=== PATIENT | male | born 1985 | race Caucasian/White ===

== ENCOUNTER 2016-06-15 23:25 | Inpatient (IN) | payer OTHER ==
[~2016-06-15] VITALS: Ht 177.8 cm; Wt 108.9 kg
--- NOTE | 2016-06-15 23:38 | NUR ---
PT BEING WANDED BY SECURITY AND CHANGED INTO PAPER SCRUBS.
--- NOTE | 2016-06-15 23:39 | ED PSYCHIATRIC COMPLAINT ---
See Addendum History of Present Illness General Chief Complaint: Psychiatric Related Complaint Stated Complaint: +SI Source: patient, EMS, police Exam Limitations: no limitations Vital Signs & Intake/Output Vital Signs & Intake/Output Vital Signs Date Time Temp Pulse Resp B/P Pulse O2 O2 Flow FiO2 Ox Delivery Rate 06/18 1429 98.0 92 130/79 06/18 1402 97.6 96 18 137/84 97 Room Air 06/18 1342 97.9 72 16 128/74 98 Room Air 06/18 1048 98.3 76 18 136/82 97 Room Air 06/18 0747 98.3 70 18 111/55 100 Room Air 06/17 2225 97.5 85 16 140/92 99 Room Air 06/17 1809 98.5 118 16 140/85 96 Room Air Triage Note: PT BIBA WITH PD ON A PEER S/P A MISDEMEANOR TONIGHT. [place] [employer]ICE REPORT THAT THEY WERE ABOUT TO LEAVE HE MADE SI COMMENTS TO HANG HIMSELF OR TAKE PILLS UPON ARRIVAL TO THE ER PT SPEAKING FAST AND LOUD STATING "SURE I WILL HANG MYSELF OR MAYBE TAKE SOME PILLS. LIFE IS NOT WORTH LIVING, NOT WORTH LIVING FOR ANYONE, WE'RE ALL GOING TO GO EXTINCT ANYWAY." PT IS COOPERATING WITH ER STAFF AT THIS TIME. ADMITS TO HAVING 2 DRINKS TONIGHT. PT HAS HX OF ASPBURGERS. DR. RUCKER AT BEDSIDE FOR EVAL. Triage Nurses Notes Reviewed? yes Onset: Gradual Duration: week(s): Timing: recent history Severity: moderate Associated Symptoms: suicidal ideation HPI: 31 yo gentleman w/ a history of asperger's presents via the police and medics with active suicidality in the context of getting picked up by a police misdemeanor. The police state, "He was driving erratically and came at us head on.... When we pulled him over, he said that he was going to kill himself by cutting himself or with pills." He states, "As soon as I get out of the hospital, I am going to kill myself." He states that he has been contemplating suicidality "for a long time, but when I got the ticket tonight, I figured I should just do it tonight." He states that he had 2 drinks, but denies other drugs tonight. He notes that he smokes occasional marijuana. He shares that his sister hung herself many years ago. (NORA IVORY,LAURENT Antonio) Reconcile Medications No Known Home Medications (DIANNA IVORY,STEWART) Allergies Coded Allergies: No Known Allergies (06/16/16) (MAX IVORY,AMISH Palomino) Past History Travel History Traveled to [place] past 21 day No Medical History Any Pertinent Medical History? see below for history Neurological: asperger's Surgical History Surgical History: non-contributory Family History Hx Contributory? No (NORA IVORY,LAURENT Antonio) Review of Systems Review of Systems Constitutional: Reports: no symptoms. EENTM: Reports: no symptoms. Respiratory: Reports: no symptoms. Cardiovascular: Reports: no symptoms. GI: Reports: no symptoms. Genitourinary: Reports: no symptoms. Musculoskeletal: Reports: no symptoms. Skin: Reports: no symptoms. Neurological/Psychological: Reports: no symptoms. Hematologic/Endocrine: Reports: no symptoms. Immunologic/Allergic: Reports: no symptoms. All Other Systems: Reviewed and Negative (NORA IVORY,LAURENT Antonio) Physical Exam Physical Exam General Appearance: well developed/nourished, mild distress Head: atraumatic Eyes: Bilateral: normal appearance. Ears, Nose, Throat: normal pharynx, normal ENT inspection, hearing grossly normal Neck: normal inspection, supple Respiratory: normal breath sounds Cardiovascular: regular rate/rhythm Gastrointestinal: soft, non-tender Extremities: normal range of motion Neurological/Psychiatric: no motor/sensory deficits, awake, agitated, alert, anxious, oriented x 3 Appearance/Memory/Insight: impaired insight Behavoir/Eye Contact/Speech: compulsive Thoughts/Hallucinations: no apparent hallucination Skin: intact, normal color, warm/dry SAD PERSONS SAD PERSONS Response Value Male Sex? yes 1 Depression/Hopelessness? yes 2 Rational Thinking Loss? yes 2 Single//? yes 1 Social Support? has no support 1 Total 7 SAD PERSONS Done? yes (ONRA IVORY,LAURENT Antonio) Progress Differential Diagnosis: etoh vs drugs vs depression vs developmental issues/ asperger's Plan of Care: Orders Procedure Date/time Status Regular Diet 06/18 L Active Continuous Observation Monitor 06/18 1500 Complete Vital Signs 06/18 1416 Active Inpt Psych Teach/Educate 06/18 1416 Active Nutritional Intake, Monitor 06/18 1416 Active Inpt Psych Auricular Acupunctu 06/18 1416 Active Continuous Observation Monitor 06/18 1100 Complete Lab Add-on Test 06/18 1052 Active Patient Data - inpatient psych 06/18 1049 Active Admit to inpatient psych 06/18 1049 Active Continuous Observation Monitor 06/18 0700 Complete Vital Signs 06/18 UNK Active Nursing Misc 06/18 UNK Active Alternative Nursing Therapy 06/18 UNK Active Activity/Ambulation 06/18 UNK Active TSH REFLEX 06/16 1233 Complete Intake & Output 06/15 2339 Complete Current Medications Sig/Adeel Start time Last Medication Dose Stop Time Status Admin Acetaminophen 650 MG Q6P PRN 06/18 1100 AC (Tylenol) Al Hydroxide/Mg 30 ML Q4-6 PRN PRN 06/18 1100 AC Hydroxide (Maalox Plus) Gabapentin 300 MG Q6P PRN 06/18 1100 AC (Neurontin) Magnesium Hydroxide 30 ML AT BEDTIME PRN 06/18 1100 AC (Milk Of Magnesia) Olanzapine 5 MG Q6P PRN 06/18 1100 AC (Zyprexa) Trazodone HCl 50 MG AT BEDTIME NEED.. 06/18 1100 AC (Desyrel) 06/16/2016 7:19:08 AM Signed out to me by Dr. Rucker. Pending crisis evaluation and disposition. Patient refusing labs. 13:55 PATIENT TO BE TRANSFERRED TO [facility] FOR INPATIENT PSYCHIATRIC ADMISSION. (DIANNA IVORY,STEWART) Hand-Off Endorsed To: STEWART WEBB MD Endorsed Time: 0700 Pending: consult, labs (NORA IVORY,LAURENT Antonio) Comments: 06/16/2016 8:19:45 PM patient signed out to me by Dr. Webb. Patient has been evaluated by the track oiler and he will be placed. 06/17/2016 5:25:43 AM uneventful emergency department stay to this point. 07:04am pt signed out to dr qureshi. (MAX IVORY,AMISH Palomino) Comments: To be admitted to [facility] (LETICIA IVORY,DILIA) Departure Departure Condition: Stable Clinical Impression Primary Impression: Depression Referred to [facility] as new patient No Departure Forms: Customer Survey General Discharge Information Comments 06/16/16, 0:30... pt declines rendering labs. pt is high risk for suicide given his active plan, sense of immediacy, and his family history (sister who hung herself). Pt to be evaluated by crises in the morning. (NORA IVORY,LAURENT Antonio) Departure Time of Disposition: 1359 Disposition: OTHER [facility]AL [facility] ([facility]) Prescriptions: Current Visit Scripts No Known Home Medications (DIANNA IVORY,STEWART) Departure Comments 06/17/16 The patient was signed out to me by Dr. Raines. He is pending disposition by crisis. 06/17/16 The patient is pending a bed search. (AMISH QURESHI DO) Departure Time of Disposition: 1331 Psych Admission Note Psychiatric Admission: I have seen and evaluated EARL TOLEDO. I have also reviewed all the pertinent lab results and diagnostic results. EARL TOLEDO will be admitted to our inpatient Psychiatric unit for treatment and care. (LETICIA IVORY,DILIA) Critical Care Note Critical Care Note Critical Care Time: 30-74 min (STEWART WEBB MD)
--- NOTE | 2016-06-15 23:52 | NUR ---
PT REFUSING BLOOD WORK AND TO PROVIDE A URINE AT THIS TIME. PT STATES "WANT TO SEE IT IN WRITING." PT SHOWN THE PEER WITH [place] [employer] AND BOTH THEY AND THIS RN EXPLAINED THAT THE PT HAS TO STAY TO BE EVALUATED. PT STATES "OKAY I WILL STAY HERE INDEFINITELY THEN BECAUSE I AM NOT DOING IT." AWARE OF PT REFUSAL AT THIS TIME.
--- NOTE | 2016-06-16 00:51 | NUR ---
PT SITTING ON STRETCHER AWAKE AND ALERT. CALM BUT CONTINUES TO BE UNCOOPERATIVE ABOUT BLOOD WORK AND URINE SAMPLE. SITTER SUMMER IN ATTENDANCE. WILL CTM.
--- NOTE | 2016-06-16 02:10 | NUR ---
PT CONTINUES TO SIT ON STRETCHER AWAKE AND ALERT. CONTINUES TO REFUSE BLOOD WORK AND URINE BUT AWARE OF NEED. MD MELENDEZ AWARE. SITTER IN ATTENDANCE. WILL CONTINUE TO MONITOR.
--- NOTE | 2016-06-16 02:30 | NUR ---
INSTRUCTED PT NEED TO DRAW BLOOD. HE VERBALLY REFUSED THEN GRABBED AT THIS NURSE, GRABBED MY SCISSORS AND ATTEMPTED TO STAB AT MY HAND THEN POUNDING THE TIP OF SCISSORS TO HIS CHEST. SECURITY AND DR MELENDEZ AT BEDSIDE TO INTERCEDE. PT VERBALLY ABUSIVE TOWARD STAFF.
--- NOTE | 2016-06-16 02:35 | NUR ---
SITTER AND SECURITY AT BEDSIDE.
--- NOTE | 2016-06-16 02:47 | NUR ---
PTS ROOMMATES ARE LENA [phone] AND COREY [phone]
--- NOTE | 2016-06-16 05:32 | NUR ---
PT NOW SLEEPING ON STRETCHER WITH REGULAR RR. BOTH SITTER AND SECURITY REMAIN IN ATTENDANCE.
--- NOTE | 2016-06-16 07:15 | NUR ---
PT SLEEPING COMFORTABLY AT THIS TIME.
--- NOTE | 2016-06-16 07:30 | NUR ---
FINGER FOOD BREAKFAST TRAY GIVEN.
--- NOTE | 2016-06-16 08:00 | NUR ---
PT SITTING UPRIGHT ON STRETCHER, LEGS CROSSED, NOT ANSWERING QUESTIONS, ?MEDITATING. REFUSING BLOODWORK/VITALS AT THIS TIME, BUT IS SITTING CALMLY ON STRETCHER, NO SOB NOTED, REGULAR RESPIRATIONS NOTED.
--- NOTE | 2016-06-16 08:41 | NUR ---
PT REFUSES BLOOD TO BE DRAWN AT THIS TIME RN AND PROVIDER AWARE
--- NOTE | 2016-06-16 09:09 | NUR ---
PT REFUSES VITALS AT THIS TIME MD AND RN AWARE
--- NOTE | 2016-06-16 11:15 | NUR ---
PT REFUSES VITALS AT THIS TIME. AND RN AWARE
--- NOTE | 2016-06-16 12:27 | NUR ---
PT MOVED TO ROOM # 14, AMBULATORY TO BATHROOM, TOOK MIRROR OFF BATHROOM WALL PER PRADEEP REINOSO, ORDER # 7 CALLED, [facility] AND SECURITY AT BEDSIDE, PT SITTING ON BED IN ROOM # 14, STATING "I AM CALM, I AM SORRY FOR THE PROPERTY DAMAGE", ATTEMPT TO GIVE IM MEDS ORDERED BY DR BUSTAMANTE, PT ASKING TO SPEAK WITH DR DIANNA ECHAVARRIA TO BEDSIDE, PT NOW COOPERATIVE TO HAVE BLOODWORK AND GIVE URINE SPECIMEN. BLOODWORK SENT TO LAB BY LISA MAI. PT NOTED WITH SUPERFICIAL LACERATION TO LEFT FOREARM, PT STATING " I DID IT WITH THIS" PT SHOWING HOSP ID BAND ROLLED UP, "BUT IT WASN'T VERY EFFECTIVE". BACITRACIN OINTMENT AND CLEAR OPSITE DRESSING APPLIED. PRADEEP REINOSO REMAINS AT DOORWAY.
--- NOTE | 2016-06-16 12:41 | NUR ---
PT DENIES ANY KNOWN ALLERGIES, MED RECORD UPDATED.
[2016-06-16 12:54] LABS: ABSOLUTE BASOPHIL COUNT 0 /CUMM (0.0-0.2); ABSOLUTE EOSINOPHIL COUNT 0.1 /CUMM (0.0-0.7); ABSOLUTE GRANULOCYTE CT 5.6 /CUMM (1.4-6.5); ABSOLUTE LYMPH COUNT 2.2 /CUMM (1.2-3.4); ABSOLUTE MONOCYTE COUNT 0.4 /CUMM (0.10-0.60); BASOPHIL % 0.6 % (0.0-2.0); GRANULOCYTE % 67.7 % (42.2-75.2); HEMATOCRIT 47.9 % (42-52); MEAN CORPUSCULAR HGB 30.2 PG (27.0-31.0); MEAN CORPUSCULAR HGB CONC 34.8 G/DL (33.0-37.0); MEAN CORPUSCULAR VOLUME 86.8 FL (80.0-94.0); MEAN PLATELET VOLUME 10.1 FL (7.4-10.4); PLATELET COUNT 198 /CUMM (130-400); RBC DISTRIBUTION WIDTH 12.6 % (11.5-14.5); RED BLOOD CELL CT 5.52 /CUMM (4.70-6.10); WHITE BLOOD CELL COUNT 8.3 /CUMM (4.8-10.8)
--- NOTE | 2016-06-16 13:36 | NUR ---
SIN spoke with Dr. Meek and Dr. Webb re: concern for the patient's safety, as he has exhibited several self-injurious behaviors / gestures (see above nursing notes), since presenting to the ED. Dr. Webb also expressed concern and spoke with nursing re: 1:1 sitter for the patient and she has already ordered medications for the patient. The patient was compliant with his lab draw and Crisis will await those results before evaluating him.
--- NOTE | 2016-06-16 13:52 | ED PSY CRISIS COLLATERAL NOTE ---
Collateral Note Collateral Note Family/Inform/Wendy Contacts: Collateral gathered from roommate Temi [phone]. She reports she was with pt last night at a constitution party and he was fine. He appeared to be having fun and involved in constitution party games. She reports he has mentioned a hx of on and off depression and she thinks he was taking an anti-depressant a couple of yrs ago but stopped because it wasn't helpful. She reports no awareness of any other mental health tx. She reports about a month ago on his birthday he was intoxicated and stated he plans on killing himself this year. She reports pt recently got a gun license permitt though she doesn't believe he has yet to purchase a gun. 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 She reports he is not happy with his career. She also reports he has recently made statements to the effect that his life is going nowhere and he is lonely and has no significant other. She also reports pt has recently become more focused on politics and has made statements that the [place] can't be trusted. She reports he at times sounds paranoid and has conspiracy theories about how corrupt and terrible the country is. He has also made statements about global warming and how the world is about to end. Temi also provided contact information for pt mother Brianna James [phone].
--- NOTE | 2016-06-16 14:18 | ED PSY CRISIS COLLATERAL NOTE ---
Collateral Note Collateral Note Family/Inform/Wendy Contacts: Collateral provided by pt mother Brianna James [phone]. She reports pt was at her house yesterday and he was "fine". She reported surprise that pt was in ED for evaluation as he "doesn't drink or use drugs" and she reports he has no pmh tx. She reports he visits with her 1x/wk and everything seemed fine. 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 He had a sister who developed a seizure condition as the result of being hit by a truck who committed suicide by hanging 7 yrs ago. She reports that he can be stubborn and a hx of temper outbursts but has never been aggressive towards others or unsafe to himself. Mother also added pt is upset about presidential election results.
--- NOTE | 2016-06-16 17:12 | NUR ---
PT LAYING QUIETLY IN ROOM, SITTER REMAINS PRESENT FOR SAFETY.
--- NOTE | 2016-06-16 17:35 | NUR ---
URINE SAMPLE OBTAINED AND SENT TO LAB
--- NOTE | 2016-06-16 17:48 | ED PSY CRISIS COLLATERAL NOTE ---
Collateral Note Collateral Note Family/Inform/Wendy Contacts: Spoke With patient's mother once again and mother, who was concerned and wondered what was happening with her son. She understood that I was unuable to share too much information with her. 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 Mother did not report that she was aware of ant significant problems or traumatic experiences, mother said none that she had been aware of. Mother mentioned that he had 2 friends who would be more likely to know about what was going on; however mother did not know the telephone numbers of the people. Patient was concerned that he may have gotten very upset due to police stop, and she felt he might react badly if he was arrested and may have had to go to senior living; however that was not going to be taken into custody, but then he made + S.I. remark. Mother is Brianna James [phone].
--- NOTE | 2016-06-16 18:47 | NUR ---
PT REFUSED VITALS AT THIS TIME.
--- NOTE | 2016-06-16 20:11 | ED PSYCH CRISIS CONSULTATION ---
See Addendum Crisis Consult Basic Assessment Date of Consult: 06/16/16 Responsible Person/Accompanied By: Brianna James, Insurance Authorization: Insurance #1: Insurance name: RUBEN RAYO Phone number: Policy number: [id number] Group number: [id number] Authorization number: ED Provider: Patient's ED Provider: NORA IVORY,REGAN Antonio Primary Care Physician: Patient's PCP: UNKNOWN PCP's Phone Number: Current Psychiatrist: none Chief Complaint: Psychiatric Related suicidal ideation Patient's Quote: "i did dumb thing, but I wanted to make sure by coming here that I could Present Illness: Patient is 31 year old unmarried male who was sent to E.D on police paper, after he was stopped after having gone through a stop sign w/o completely stopping; and having had two large drinks which put him over the limit. "as I usually try to go out of my way to help people, I volunteered to go get the pizza, while knowing I had had a few. Patient subsequently took a scissors from staff to cut self; thenbroke a mirror in the bathroom to cut himself , which he did. All of this occurred after he had been given ticket by police who were bulmaro car due to patient's BAL. (Note the BAL wasless than 10 when tested here, but positive for cannabis, which patient admits to using often, as opposed to drinking, which is at most 2 days per week, and not to point of getting real drunk. Patient reports that he has been "kind of "diagnosed as having Asburgers, and certainly relates as if on the spectrum. He takes time picking and choosing words carefully, and has a very intense presentation. Patient states that he knows that he has a lot of "markers", for mental illness and possible S I.; as patient's father of cancer [id number] and it was very tough for family. Also brianne's only sister had horrendous injury in 2001, as she was competing athletically, and it gave her siezures and part paralyzation. She killed herself in 2008. Patient objective in trying to get here via police (as, at one level, he knew his statements would result in being brought to hospital), was to insure that he could never possess a gun, because he sees himself dying by shooting himself fairly often Patient states he has low self esteem, and that kids were awful to him as a kid. Patient is very resistent to medication, not feeling that it would help him at all. 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 He lives with 2 women who are in green relationship, renting from them. Patient went on and on about the poor policies of the [place] in terms of environment and economics, especially toward young people. Patient describes today "as maybe a cry for help". Patient is alert and Ox 3. Talkative, and apologetic for causing disturbance. Patient's Address: [address] [place] [address] Other Phone Number: Who Do You Live With? Friend Family/Informants Interviewed: Mother Brianna James Allergies - Coded Allergies: No Known Allergies (06/16/16) Current Medications - No Known Home Medications Laboratory Results: Laboratory Tests 06/16/16 1730: Urine Opiates Screen < 100.00, Methadone Screen < 40, Barbiturate Screen < 60, Ur Phencyclidine Scrn < 6.00, Amphetamines Screen < 100, U Benzodiazepines Scrn < 85, Urine Cocaine Screen < 50, Urine Cannabis Screen > 80.00 H 06/16/16 1233: Anion Gap 16, Estimated GFR > 60, BUN/Creatinine Ratio 18.6, Glucose 102 H, Calcium 9.5, Total Bilirubin 0.8, AST 27, ALT 44, Alkaline Phosphatase 68, Total Protein 8.5 H, Albumin 5.2 H, Globulin 3.3, Albumin/Globulin Ratio 1.6, CBC w Diff NO MAN DIFF REQ, RBC 5.52, MCV 86.8, MCH 30.2, RDW 12.6, MPV 10.1, Gran % 67.7, Lymphocytes % 26.1, Monocytes % 4.6, Eosinophils % 1.0, Basophils % 0.6, Absolute Granulocytes 5.6, Absolute Lymphocytes 2.2, Absolute Monocytes 0.4, Absolute Eosinophils 0.1, Absolute Basophils 0, PUBS MCHC 34.8, Serum Alcohol < 10.0 06/15/16 2340: Methadone Screen Cancelled, Barbiturate Screen Cancelled, Ur Phencyclidine Scrn Cancelled, Amphetamines Screen Cancelled, U Benzodiazepines Scrn Cancelled, Urine Cocaine Screen Cancelled, Urine Cannabis Screen Cancelled (KIMMIE PRESLEY,BRYAN Jerez.) Addendum Addendum Crisis re-eval pt this morning. Pt much brighter and engaged today. ying affect. He apologized for damages and any trauma or inconvience he posed to the ED yesterday. He discussed his intent in making suicidal statements and being brought to [place] ED was to insure he will not be able to have access to a gun. He reports that he had recently obtained a gun license permit with the intent of having access to a loaded gun in the case that he wanted to kill himself if his life situation worsened. Crisis reiterated that a bed search continues and that his current mental state will be reviewed with covering psychiatrist this morning. (ALFONZO BIRD,KATE) Past History Past Medical History Neurological: asperger's Past Surgical History Surgical History: non-contributory Psychosocial History Strengths/Capabilities: roshni has job with benefits support from mom has stable housing Physical Limitations (Interventions): none Psychiatric Treatment History Psych Treatment Psychiatric Treatment Yes Inpatient Treatment No Outpatient Treatment Yes Location of Treatment vague not sure where while ago Reason for Treatment Asburgers deathof father and sister Dates of Treatment 2009 Response to Treatment not helpful Diagnosis by History: Asburgers Substance Use/Abuse History Drug Use/Abuse Substances Used/Abused Yes Substance Used/Abused Marijuana First Use 22 Last Used 2 days ago How much used/taken varies How often almost daily For how long 8-9 years Route of use smoke Substance Abuse Treatment Substance Abuse Treatment Past Substance Abuse [place] No Comments: feels cannabis helps calm him down (KIMMIE PRESLEY,BRYAN Jerez.) Current Mental Status Mental Status Orientation: Person, Place, Situation Affect: Anxious, Labile Speech: Hyper-verbal, Loud, Perseveration Neuro-vegetative: Loss of Interest, Sexual Interest Decreased Appearance Appearance- Dress/Hygiene: neat Behaviors Thought Process: Loose Association, Tangential Thought Content: Ideas of Reference Memory: WNL Insight: Poor SI/HI Risk Assessment Past Suicidal Ideation/Attempts Yes Current Suicidal Ideation/Att Yes Past Homicidal Ideation/Att: No Current Homicidal Ideation/Attempts No Degree of Intent: Thoughts/No Intent Risk Factors: high anxiety/distress, SA/MH hospitalized, substance abuse, poor impulse control, male Lethality Ratin PTSD Checklist PTSD Done? pt unable to participate ED Management Sitter: Yes Restraints: No (KIMMIE PRESLEY,BRYAN Cr) DSM5/PS Stressors/Medical Prob Diagnosis' (DSM 5, Stressors, Medical): Bipolar d. o. recuurent with psychotic features F33.3 Cannabis use d.o. [id number] Alcohol use d.o., [id number] Current GAF: 24 Comments: Patient made many suicidal statements to police and then tried to hurt self in hospital. Afraid he would shoot himself if he had a gun, so this is means to prevent his obtaining a gun (KIMMIE PRESLEY,BRYAN Cr) Departure Disposition Psych Medical Clearance Date: 06/16/16 Medically Cleared at: 1845 Time Started: 1849 Time Ended: 1949 Psychiatrist Consulted: Regan Meek MD Time Disposition Established: 1929 Plan for Disposition - Modality: Bed Search Rationale for Disposition: no beds cpsouth need bedsearch Type of IP Admission: PEC Additional Instructions: monitor closely Referrals UNKNOWN (PCP/Family) (BRYAN BURKS MS)
--- NOTE | 2016-06-16 21:31 | NUR ---
Bed Search started. Pt's info faxed to [facility], [facility], [facility] and [facility].
--- NOTE | 2016-06-16 23:19 | NUR ---
PT REMAINS CALM AND RESTING AT THIS TIME. NO ACUTE DISTRESS. REMAINS IN BEHAVIORAL CONTROL. PLAN FOR HOLD OVERNIGHT AND BEDSEARCH TOMORROW BY CRISIS. SITTER PRESENT FOR SAFETY
--- NOTE | 2016-06-17 01:37 | NUR ---
RESTING QUIETLY IN BED SITTER IN ATTENDANCE
--- NOTE | 2016-06-17 04:00 | NUR ---
CONTINUES TO SLEEP CONSTANT OBSERVATION MAINTAINED
--- NOTE | 2016-06-17 07:20 | NUR ---
PT SLEEPING COMFORTABLY AT PRESENT, SITTER REMAINS AT DOORWAY.
--- NOTE | 2016-06-17 08:32 | NUR ---
Crisis re-eval. Pt much brighter and engaged today. Currently denying acute SI. Pt informed that a bed search continues. Crisis will f/u on referrals sent last evening.
--- NOTE | 2016-06-17 10:44 | NUR ---
PT REMAINS CALM AND COOPERATIVE, AWAITING CRISIS FOR POSSIBLE ADMISSION, BED SEARCH ONGOING.
--- NOTE | 2016-06-17 11:10 | NUR ---
Crisis faxed pt referrals to [facility], [facility] and [facility].
--- NOTE | 2016-06-17 11:33 | NUR ---
PT AMBULATORY IN ROOM. PT CALM AND COOPERATIVE WHILE TAKING VITALS. PT HAS LUNCH TRAY.
--- NOTE | 2016-06-17 12:10 | NUR ---
DR STOVER AT BEDSIDE FOR EVAL
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
--- NOTE | 2016-06-17 13:54 | NUR ---
PT CALM AND COOPERATIVE FOR VITALS. PT RESTING ON BED. CRISIS PERFORMING BED SEARCH.
--- NOTE | 2016-06-17 14:17 | NUR ---
Monie delined pt referral because [employer] insurance on 06/16/16. Pt said his company switched over to [employer] as of 06/17/16.
--- NOTE | 2016-06-17 15:14 | NUR ---
PT RESTING ON BED AT THIS TIME. SITTER AT DOORWAY FOR SAFETY
--- NOTE | 2016-06-17 16:53 | NUR ---
PT AMBULATORY IN ROOM, PACING. PT CALM AND COOPERATIVE. BED SEARCH IN PROGRESS.
--- NOTE | 2016-06-17 17:04 | NUR ---
SIN followed up with Monie, Gabriela Navarrete and J[facility] re: possible admission. Monie and JUS note that they have filled all of their available beds. Gabriela Navarrete reports that they are still reviewing. SW spoke with the patient who is aware of the plan.
--- NOTE | 2016-06-17 18:09 | NUR ---
PT STANDING IN ROOM WATCHING TV WITH BLANKET WRAPPED AROUND HIM. PT CALM AND COOPERATIVE. SITTER AT DOOR FOR SAFETY.
--- NOTE | 2016-06-17 19:42 | NUR ---
PT ALBULATORY IN ROOM, STANDING IN FRONT OF TV. CALM AND COOPERATIVE AT THIS TIME. SITTER AT DOOR.
--- NOTE | 2016-06-17 21:05 | NUR ---
PT LYING ON BED WATCHING TV. PT CALM AND COOPERATIVE AT THIS TIME. SITTER AT DOOR FOR SAFETY.
--- NOTE | 2016-06-17 22:24 | NUR ---
PT LYING ON BED WATCHING TV. PT STOOD UP WHEN I ASKED IF I COULD TAKE HIS VITALS. PT PLEASANT, CALM AND COOPERATIVE. SITTER AT DOOR FOR SAFETY.
--- NOTE | 2016-06-18 00:45 | NUR ---
PT SLEEPING WITH RR, SLEEPING ON SIDE WITH CHEST RISE AND FALL. SITTER IN PLACE WILL CONTINUE TO MONITOR.
--- NOTE | 2016-06-18 02:10 | NUR ---
PT SLEEPING WITH RR, CHEST RISE AND FALL PT SLEEPING ON STOMACH, SITTER IN PLACE AT DOOR. WILL CONTINE TO MONITOR.
--- NOTE | 2016-06-18 03:57 | NUR ---
PT SLEEPING WITH RR ON L SIDE, CHEST RISE AND FALL NOTED. SITTER IN PLACE AT DOOR.
--- NOTE | 2016-06-18 06:36 | NUR ---
assumed care, pt noted to be sleeping when this nurse entered room awake to verbal stimuli, calm coperative with sitter in attendance, will continue to monitor
--- NOTE | 2016-06-18 09:10 | NUR ---
PT REMAINS CALM AND COPERATIVE , SLEEPING AT THIS TIME WITH REGULAR RESP RATE NOTED. SITTERS REMAIN
--- NOTE | 2016-06-18 09:55 | NUR ---
PER CRISIS PT NEEDS HIS PHONE OUT OF [employer] BAG SO THAT HE CAN CALL HIS EMPLOYERS, [employer]ATER[employer] ASSISTING PT TO RETRIEVE HIS NUMBERS AT THIS TIME
--- NOTE | 2016-06-18 10:30 | NUR ---
VALUABLES PLACED BACK IN SAFE. SITTERS REMAIN WITH PT ,
--- NOTE | 2016-06-18 11:05 | IP CRISIS DIAG ASSESS PSYCH ---
See Addendum Diagnostic Assessment Basic Assessment Insurance Authorization: Insurance #1: Insurance name: [facility]. Phone number: Policy number: [id number] Group number: [id number] Authorization number: SIN called [facility]- The Pending reference # is [id number] There were no available care managers at the time of the call and SIN was instructed to leave clinical on Ribbon Cleaner, Navya's voicemail, at [phone]. Navya will review clinical and call Crisis with prior authorization information. Primary Care Physician: Patient's PCP: UNKNOWN PCP's Phone Number: Present Illness: The patient is a 31 year old single, male presenting to the ED, on a PEER, after making suicidal statements to the police. The patient presents alert and oriented with euthymic mood and congruent affect. His thought process and content appear to be concrete and intense. He denies any current SI or HI, however does admit to having ongoing suicidal thoughts. He states that he started the process to obtain a gun permit, as using a firearm is the only way he could see himself following through on his suicidal thoughts. He rates his depression a 2.5 and anxiety a 2 out of 10 (10 being the most severe). He denies any current or history of AH, VH or paranoia, however he does appear paranoid when discussing the "future of humanity." He states that "he believes that humanity will be extinct in 100 years," noting that this is the primary trigger for his suicidal thoughts. He denies any previous stressors besides the state of the world and humanity. He denies any current or history of abuse or trauma. 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 He does admit to regular use of alcohol and marijuana weekly. He did have significant loses in his life, as his father from Cancer in 2006 and his sister committed suicide in 2008. He states that he went to therapy to cope with both of the loses and that he believes he is over them. He does appear to have insight that his behaviors and statements warrant an inpatient admission at this time Patient's Address: [address] [place] [address] Other Phone Number: Who Do You Live With? Friend Feel Safe Where You Live? Yes Feel Safe in Your Relationship No (N/A) If No, Please Elaborate: N/A Marital Status: single Do You Have Children? No Primary Language? Kittitian Family/Informants Interviewed: Mother Brianna James was contacted when the patient first presented to the ED. Allergies - Coded Allergies: No Known Allergies (06/16/16) Current Medications - No Known Home Medications Consequences of Psych Med Use: N/A Comment: N/A Toxicology Screen Completed? Yes Results: positive (Cannabis) Symptoms of Use: N/A Past History Abuse/Trauma History Trauma History/Current Trauma: Denies Legal History Current Legal Status: The patient reports that he has legal issues, that he will have to deal with, from the incident with the police that brought him to the ED. Have you ever been arrested? Yes Number of Arrests: [address] Dates: The patient is unsure Software Product Manager N/A Psychosocial History Strengths/Capabilities: The patient has stable housing and employment. He does appear to have a supportive mother and friends. Physical Limitations (Interventions): None noted Psychiatric Treatment History Psych Treatment Psychiatric Treatment Yes Inpatient Treatment No Outpatient Treatment Yes Location of Treatment The patient just stated it was private therapy and did not elaborate. Reason for Treatment The patient reports that he had therapy to help cope with the of his sister and his father. Dates of Treatment 2006 and 2008 Response to Treatment The patient states that the therapy helped him to cope with the of his father and sister and that he is over it. He is very clear that their deaths have nothing to do with his presenation to the ED at this time. Diagnosis by History: Per history- Aspergers Risk Factors: high anxiety/distress, SA/MH hospitalized, substance abuse, poor impulse control, male Substance Use/Abuse History Drug Use/Abuse minimum 12mo Hx 1 Substances Used/Abused Yes Substance Used/Abused Marijuana First Use 26 years old Last Used May 2016 How much used/taken 1x weekly How often The patient was not clear For how long 8-9 years per initial consult Route of use Inhalation Drug Use/Abuse minimum 12mo Hx 2 Substances Used/Abused Yes Substance Used/Abused Alcohol First Use 26 years old Last Used May 2016 How much used/taken 2 or 3 drinks a week How often 2-3 drinks a week. For how long Unclear Route of use Oral Substance Abuse Treatment Substance Abuse Treatment Past Substance Abuse TX No Inpatient Treatment No Outpatient Treatment No Location of Treatment N/A Reason for Treatment N/A Dates of Treatment N/A Response to Treatment N/A Comments: The patient reports that he and his friends have a regular game night on Tuesdays and that he usually drinks then. Sexual History Sexually Active No Sexual Orientation Heterosexual Sexual Concerns: None noted Education History Highest Level of Education: high school/GED (Accounting), bachelor's degree Preferred Learning Style: experiential Current Mental Status Mental Status Orientation: Person, Place, Situation Affect: WNL Speech: Loud ([place] and intense at times) Neuro-vegetative: Anhedonia (Per initial consult), Loss of Interest, Sexual Interest Decreased Appearance Appearance- Dress/Hygiene: The patient presents alert, oriented, neat and clean. He was sitting in bed, in hospital attire and had good eye contact and participation in the evaluation. Behaviors Thought Process: concrete Thought Content: The patient appears to be having paranoid thoughts about the state of the world and humanity. He notes that the decline of humanity is what is triggering his suicidal thoughts. He states that there are alot of things going wrong and that no one is doing anything to make them better. Memory: WNL Insight: WNL SI/HI Risk Assessment - Minimum 6mo History- Past Suicidal Ideation/Attempts Yes Current Suicidal Ideation/Att No Past Homicidal Ideation/Att: No Current Homicidal Ideation/Attempts No Degree of Intent: The patient reportedly told the police officers that he was going to kill himsel by shooting himself. He does state that the only way he would kill himself would be via a firearm. He did make several attemtpts to harm himself while in th ED, cutting his arm with his ID band, grabbing marcus from an RN and putting them to his chest, as well as pulling the mirror off the wall in the bathroom., The patient did start the process to obtain a gun permit, as he believes this is the only way the he would kill himself. Risk Factors: high anxiety/distress, SA/MH hospitalized, substance abuse, poor impulse control, male Lethality Ratin Needs/Init TX Plan/Goals: Admit to inpatient treatment to maintain safety and to stabilize symptoms. The patient will work with the treatment team on transitioning to care in the [facility]. AUDIT-C Questionnaire: AUDIT-C Questionnaire: Response Value ETOH use in the past year 2-4 times/week 3 # drinks typical/day 3 or 4 1 6 or > drinks per occasion Less than monthly 1 Total 5 DSM5/PS Stressors/Medical Prob Diagnosis' (DSM 5, Stressors, Medical): F31.9 Unspecified Bipolar Disorder and related Disorder F12.20 Cannabis use Disorder F10.20 Alcohol use Disorder Current GAF: 25 Comments: N/A
--- NOTE | 2016-06-18 12:00 | NUR ---
PT RESTING ON BED WITH EYES CLOSED AT THIS TIME REGULAR RESP RATE NOTED. SITTER REMAINS
--- NOTE | 2016-06-18 13:12 | SOCIAL WORKER SOCIAL HX PSYCH ---
Social History Basic Assessment Insurance Authorization: Insurance #1: Insurance name: [employer] Phone number: Policy number: [id number] Group number: [id number] Authorization number: [facility] Source of Income/Entitlements: employment Primary Care Physician: Patient's PCP: UNKNOWN PCP's Phone Number: Present Problem: The patient is a 31 year old single, male presenting to the ED, on a PEER, after making suicidal statements to the police. The patient presents alert and oriented with euthymic mood and congruent affect. His thought process and content appear to be concrete and intense. He denies any current SI or HI, however does admit to having ongoing suicidal thoughts. He states that he started the process to obtain a gun permit, as using a firearm is the only way he could see himself following through on his suicidal thoughts. He rates his depression a 2.5 and anxiety a 2 out of 10 (10 being the most severe). He denies any current or history of AH, VH or paranoia, however he does appear paranoid when discussing the "future of humanity." He states that "he believes that humanity will be extinct in 100 years," noting that this is the primary trigger for his suicidal thoughts. He denies any previous stressors besides the state of the world and humanity. He denies any current or history of abuse or trauma. 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 He does admit to regular use of alcohol and marijuana weekly. He did have significant loses in his life, as his father from Cancer in 2006 and his sister committed suicide in 2008. He states that he went to therapy to cope with both of the loses and that he believes he is over them. He does appear to have insight that his behaviors and statements warrant an inpatient admission at this time Primary Language? Belarusian Living Situation Rents or Owns Home? rents Other Living Arrangement: N/A Residential Care/Treatment Fac N/A Feel Safe Where You Are Living Yes Feel Safe in Relationships? Yes (N/A) Comments: N/A Allergies - Coded Allergies: No Known Allergies (06/16/16) Current Medications - No Known Home Medications Consequences of Psych Med Use: N/A Comments: N/A Past History Past Medical History Neurological: asperger's Past Surgical History Surgical History: non-contributory /Family History Place/Country of Origin: [facility] Childhood Family Constellation: Mother, father, and 2 sisters Primary Childhood Caretakers: father, mother Family Life During Childhood: "[place] family but school sucked." DCF Involvement? No Mother's Age (Current/): 0 (Unknown) Relationship w/Mother: The patients mother spoke with Crisis when the patient presented. Father's Age (Current/): 0 ( in 2006) Relationship w/Father: Unclear how the patient's relationship was prior to his fathers passing in 2006, from Cancer Any Sibling(s)? Yes Sibling's Gender(s)/Age(s): female Sibling 1:, female Sibling 2: Relationship w/Sibling(s): The patient reports that one of his sisters committed suicide in 2008 and that the other sistesr lives in [place]. He notes that he sees his sister 1-2 times per year and that they have a "fine" relationship. Relationship w/Friends: The patient reports that he has a good [place] of friends and that those relationships are "really great." Family Psych/Sub Abuse/Add Hx: None noted Other Comments: N/A Abuse/Trauma History Trauma History/Current Trauma: Denies Victim or Perpretator? victim (N/A) Patient's Age at Time of Trauma: 0 (N/A) History of Trauma/Abuse Treatment? No (N/A) Abuse/Trauma Treatment: N/A Legal History Legal Guardian/Address/Phone: Self Current Legal Status: Pending legal issues re: to presentation to the ED. Pending Court Dates: The patient believes that he will have a court date, however does not know when it will be. Have you ever been arrested Yes Number of Arrests: 1 Hx of Juvenile Legal Charges? No Hx of Adult Legal Charges? 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 He does appear to have a supportive mother and friends. Weaknesses: The patient lost his father to Cancer and sister to suicide. Physical Limitations (Interventions): None noted Last Physical: Unknown History of Seizures? No History of Blackouts? No ADL Limitations: None noted [place]/Social/Peer Relations The patient reports that he has good friends. He notes that making friends was not easy for him until he started college. He notes no issues now and reports that he has a game night at his house weekly, for his friends. Meaningful Activities: The patient reports that he likes to play board and video games. Childhood Uatsdin: no mandaeism stated Current Mu-Ism Affiliation: Agnostic Is Spirituality Important to You? "No" Cultural/Ethnic Issues: None noted Are There Developmental Issues? No Milestones Achieved: fine motor, gross motor Psychiatric Treatment History Psych Treatment Inpatient Treatment No Outpatient Treatment Yes Location of Treatment The patient just stated it was privatetherapy and did not elaborate. Reason for Treatment The patient reports that he had therapy to help cope with the of his sister and his father. Dates of Treatment 2006 and 2008 Response to Treatment The patient states that the therapy helped him to cope with the of his father and sister and that he is over it. He is very clear that their deaths have nothing to do with his presenation to the ED at this time. Precipitating Factors: The patient reports that he only attended therapy to deal with the deaths of his sister and father, as well as work related stress. Current Pipe And Test Supervisor: None noted Treatment of Prior Episodes: Private therapists- he did not elaborate on specifics. Diagnosis: Per history- Aspergers Psychodynamic Issues: The of his sister and father. Risk Factors: high anxiety/distress, SA/MH hospitalized, substance abuse, poor impulse control, male Substance Use/Abuse History Drug Use/Abuse 1 Substance Used/Abused Alcohol First Use 26 years old Last Used May 2016 How much used/taken 2 or 3 drinks a week How often 2-3 drinks a week. For how long Unclear Route of use Oral Drug Use/Abuse 2 Substance Used/Abused Marijuana First Use 26 years old Last Used May 2016 How much used/taken unclear How often 1x weekly For how long 8-9 years per initial consult Route of use Inhalation Explain: N/A Explain: N/A Have You Ever Attended AA? No Do You Attend AA Currently? No Do You Have a Sponsor? No Other Community Resources Used: None noted Symptoms of Use: N/A Substance Abuse Treatment Substance Abuse Treatment Inpatient Treatment No Outpatient Treatment No Location of Treatment N/A Reason for Treatment N/A Dates of Treatment N/A Response to Treatment N/A Comments: N/A Sexual History Sexually Active No Sexual Orientation Heterosexual Sexual Concerns: None noted Education History Highest Level of Education: high school/GED (Accounting), bachelor's degree Highest Grade Completed: graduated high school Vocational Year Completed: N/A Number of College Years: 4 College Degree/Major: Accounting Other Degree(s): N/A Preferred Learning Style: experiential HX of Learning Difficulties: None reported Barriers to Learning: None reported Special Communication Needs: None reported Employment History Employment Employed Not in Labor Force: N/A 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 of Jobs in Last 5 Years: 3 Attendance: Normal Performance: Good Comments: N/A History Have You Been in The ? No If Yes, Explain: N/A Type of Discharge: N/A Date of Discharge: N/A Current Mental Status Mental Status Orientation: Person, Place, Situation Affect: WNL Speech: Loud ([place] and intense at times) Neuro-vegetative: Anhedonia (Per initial consult), Loss of Interest, Sexual Interest Decreased Appearance Appearance- Dress/Hygiene: The patient presents alert, oriented, neat and clean. He was sitting in bed, in hospital attire and had good eye contact and participation in the evaluation. Behaviors Thought Process: concrete Thought Content: The patient appears to be having paranoid thoughts about the state of the world and humanity. He notes that the decline of humanity is what is triggering his suicidal thoughts. He states that there are alot of things going wrong and that no one is doing anything to make them better. Memory: WNL Insight: WNL SI/HI Risk Assessment Past Suicidal Ideation/Attempts Yes Current Suicidal Ideation/Att No Past Homicidal Ideation/Att: No Current Homicidal Ideation/Attempts No Degree of Intent: Plan, The patient currently denies SI, however is clear that he had been having suicidal thoughts to kill himself with a firearm. He did make several suicidal gestures while in the ED., He did start the process to obtain a gun permit. Danger To: Self Gravely Disabled: Paranoia Risk Factors: Hx of suicide attempt(s), Male, Weapons access Lethality Ratin - Conclusion and Recommendations for treatment - and discharge planning Summary: The patient is a 31 year old male presenting to the ED after making suicidal statments to the police. The patient is currently denying SI, however did make several suicidal gestures while in the ED. He does present paranoid, when discussing politics and the future oft he world and Humanity.
--- NOTE | 2016-06-18 13:50 | NUR ---
PT TO BE ADMITTED TO [facility] . REMAINS CALM AND COPERATIVE. SITTER IN ATTENDANCE
--- NOTE | 2016-06-18 13:52 | NUR ---
Admit to [facility] for safety and symptom stabilization.
--- NOTE | 2016-06-18 13:59 | NUR ---
REPORT AND TRANSPORT CALLED AT THIS TIME, PT SITTING TALKING ON PHONE WITH HIS MOTHER AT THIS TIME
[2016-06-18 14:29] VITALS: BP 130/79
--- NOTE | 2016-06-18 15:05 | NUR ---
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 PATIENT DENIES SI OR INTENT TO SELF HARM. PATIENT PRESENTS LOUD, MILDLY PRESSURED, WITH LOOSE ASSOCIATIONS. pATIENTS MAIN THEME IS DOOMSDAY THEORIES OF THE WORLD ENDING AND WHATS THE SENSE OF EXISTING. PATIENT STATES HE WAS SUPRISED THAT HE HAS TURNED 31 HE THOUGHT HE WOULD "BE BY NOW". OF NOTE - PATIENT'S SISTER SUICIDED DUE TO PARANOIA 8 YEARS AGO. PATIENT INTELLECUTALIZES ALL THE EVENTS LEADING TO HOSPITALIZATION AND SISTER'S SUICIDE. PATIENT PLACED ON 1:1 DUE TO ERRATIC BEHAVIOR. THAT THE WORLD IS
[2016-06-18 20:01] VITALS: BP 139/81
--- NOTE | 2016-06-18 20:15 | History & Physical ---
General Information and HPI MD Statement: I have seen and personally examined EARL TOLEDO and documented this H&P. The patient is a 31 year old M who presented with a patient stated chief complaint of suicidal ideations. Source of Information: patient, family Exam Limitations: no limitations History of Present Illness: 31-year-old white male in by ambulance with police and on a P EER after misdemeanor while driving see more police reported that as they were about to leave made suicidal comments to hurt himself or these reasons is admitted or evaluation and treatment Allergies/Medications Allergies: Coded Allergies: No Known Allergies (06/16/16) Home Med list No Known Home Medications Compliance With Home Meds: UNKNOWN Past History Travel History Traveled to [place] past 21 day No Medical History Neurological: asperger's Isolation History: Standard Surgical History Surgical History: non-contributory Past Family/Social History Psychosocial History Where do you live? Home ETOH Use: occasional use Employment History Employment Employed Profession/Employer [employer] Review of Systems Review of Systems Constitutional: Reports: see HPI. Exam & Diagnostic Data Last 24 Hrs of Vital Signs/I&O Vital Signs Date Time Temp Pulse Resp B/P Pulse O2 O2 Flow FiO2 Ox Delivery Rate 06/18 2000 97.8 77 139/81 06/18 2000 97.8 77 139/81 06/18 1429 98.0 92 130/79 06/18 1402 97.6 96 18 137/84 97 Room Air 06/18 1342 97.9 72 16 128/74 98 Room Air 06/18 1048 98.3 76 18 136/82 97 Room Air 06/18 0747 98.3 70 18 111/55 100 Room Air 06/17 2225 97.5 85 16 140/92 99 Room Air Intake & Output 06/18 1600 06/18 0800 06/18 0000 Intake Total Output Total Balance Patient 240 lb Weight Physical Exam General Appearance Alert, Oriented X3, Cooperative, No Acute Distress Skin No Rashes HEENT Atraumatic, PERRLA, EOMI, Mucous Membr. moist/pink Neck Supple, No JVD, No thryomegaly, +2 Carotid Pulse wo Bruit, No LAD Lymphatic Axillary nl, Cervical nl Cardiovascular Regular Rate Lungs Clear to Auscultation, Normal Air Movement Abdomen Normal Bowel Sounds, Soft, No Tenderness, No Hepatospenomegaly, No Masses Neurological Exam Findings: Normal Gait, Normal Speech, Strength at 5/5 X4 Ext, Normal Tone, Sensation Intact, Cranial Nerves 3-12 NL, Reflexes 2+ Cranial Nerves II through XII: Intact Extremities No Clubbing, No Cyanosis, No Edema, Normal Pulses Vascular Normal Pulses, Pulses Symmetrical Last 24 Hrs of Labs/Isrrael: Laboratory Tests 06/16/16 1730: Urine Opiates Screen < 100.00, Methadone Screen < 40, Barbiturate Screen < 60, Ur Phencyclidine Scrn < 6.00, Amphetamines Screen < 100, U Benzodiazepines Scrn < 85, Urine Cocaine Screen < 50, Urine Cannabis Screen > 80.00 H 06/16/16 1233: Anion Gap 16, Estimated GFR > 60, BUN/Creatinine Ratio 18.6, Glucose 102 H, Calcium 9.5, Total Bilirubin 0.8, AST 27, ALT 44, Alkaline Phosphatase 68, Total Protein 8.5 H, Albumin 5.2 H, Globulin 3.3, Albumin/Globulin Ratio 1.6, TSH & T3 &Free T4 Intrp 0.908, CBC w Diff NO MAN DIFF REQ, RBC 5.52, MCV 86.8, MCH 30.2, RDW 12.6, MPV 10.1, Gran % 67.7, Lymphocytes % 26.1, Monocytes % 4.6, Eosinophils % 1.0, Basophils % 0.6, Absolute Granulocytes 5.6, Absolute Lymphocytes 2.2, Absolute Monocytes 0.4, Absolute Eosinophils 0.1, Absolute Basophils 0, PUBS MCHC 34.8, Serum Alcohol < 10.0 06/15/16 2340: Methadone Screen Cancelled, Barbiturate Screen Cancelled, Ur Phencyclidine Scrn Cancelled, Amphetamines Screen Cancelled, U Benzodiazepines Scrn Cancelled, Urine Cocaine Screen Cancelled, Urine Cannabis Screen Cancelled Diagnostic Data ITS Data Unobtainable at this time Assessment/Plan As Ranked By This Provider Problem List: 1. Depression Miscellaneous Miscellaneous Documentation Attending Case Discussed With: CK IVORY,LAURENT Primary Care Physician: UNKNOWN Patient sees these Specialists Psychiatry Level of Patient Care: [facility] Consults Needed: Consulting Specialty: Psychiatry Consulting Physician: Dr. Bennett Reason for Consult: suicidal ideations and depression
--- NOTE | 2016-06-18 21:47 | NUR ---
PT ADMITTED TO UNIT AT 1415. PT MAINTAINED ON 1:1 SUPERVISION. PT COMPLIANT AND COOPERATIVE. PT DENIES S/I. PT VS WNL. PT ATTENDED WRAP UP GROUP. NO COMPLAINTS OFFERED.
--- NOTE | 2016-06-19 04:14 | NUR ---
SLEPT WELL SITTER IN VIEW OF PT.
[2016-06-19 07:42] VITALS: BP 138/70
--- NOTE | 2016-06-19 13:06 | NUR ---
Pt on the unit, social with peers and staff, no issues or complaints reported or observed, mood stable overall with flat affect, + appetite. Goal was to be productive, attend groups and reported + sleep, currently meeting with Chiki Spencer APRN.
--- NOTE | 2016-06-19 13:36 | CPS MD/APRN INITIAL ASSE PSYCH ---
Psychiatric Admission Awning Spreader's Note Reviewed: Yes Patient Seen and Examined: Yes Identifying Information: The patient is a 31 year old single, male presenting to the ED, on a PEER, after making suicidal statements to the police. Chief Complaint: Reported SI to police, "the incident which brought me here, was both an unfortunate but neccessary step towards personal growth and success." Reaction to Hospitalization: Calm, cooperative. Playing cards with sitter. History of Present Illness Onset of Illness: "Up and downs throughout life." Hx of Asberger's/autism spectrum disorder high functioning.- Circumstances Leading to Admission: The patient is a 31 year old single, male presenting to the ED, on a PEER, after making suicidal statements to the police. Problem(s) Justifying Need for Admission: Suicidal ideation Past Psychiatric History Past Diagnosis(es)- if any: Asbergers, high functioning autism spectrum. Past Precipitating Factors- if any: He had significant loses in his life, his father from Cancer in 2006 and his sister committed suicide in 2008 after a TBI in 2003. - Include inpatient and outpatient treatment Treatment History: Hx of some short term outpatient psychiatric care. Denies hospitalizations. History of Suicide Attempts or Gestures Denies Substance Abuse History: LSD once. Once a week marijuana smoking. Social drinking, about once a week. Allergies: Coded Allergies: No Known Allergies (06/16/16) Home Med List: No known home medications. - Include any medical condition(s) that may - impact the patient's recovery/remission Past History Medical History Neurological: asperger's Isolation History: Standard Surgical History Surgical History: [place] Teeth. Psychiatric Family/Social Hx Family History Psychiatric Illness: Mother is one of 11 children; out of many first cousins, only one first cousin has bipolar d/o. Sister suicided in 2008, 5 years after suffering a TBI s/p being hit by car while jogging. Substance Use: Denies Suicides: Sister suicided in 2008, 5 years after suffering a TBI s/p being hit by car while jogging. Social History Living Situation: Lives with two roomates. 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 Significant Relationships (family/friends): Mother, and a sister who lives in [place]. Large family, some close friends. Education: BS in accounting. 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 He enjoys board games, video games. He has a group of friends who get together once a week to play games, have some drinks and smoke some marijuana. Legal: Recent DUI on this past New Years Kimberly. Healthly Behaviors Screening Tobacco Screening Tobacco Use from ED Docu: Never used - If tobacco counseling indicated - the following topics are required. - #1 Recognizing dangerous situations. - #2 Coping Skills. - #3 Basic information about quitting. Status of Tobacco Cessation Counseling: N/A B/C NO TOB USE Cessation Med Status: No Tobacco Use last 30d Alcohol Screening - ETOH screen POS if BAL >=80 or Audit-C>= M4/F3 Audit-C Score from Diag Assess: 5 Blood Alcohol Level: Lab Serum Alcohol < 10.0 MG/DL 06/16/16 1233 Alcohol Use Screening Results: Pos per Audit C &/or BAL - If ETOH counseling indicated - the following topics are required. - #1 Express concern about the patient's - drinking at unhealthy levels, include informing - of national norms for moderate drinking: - men <= 14 drinks/week, max 4 drinks/occasion - women <= 7 drinks/week, max 3 drinks/occasion - #2 Providing feedback, including linking alcohol to - negative physical effects (liver injury, hypertension) - negative emotional effects (relationship problems and - depression) - negative occupational consequences (reduced work - performance) - #3 Advising the patient to abstain from alcohol or - to drink below national norms for moderate drinking - (as listed above). Status of ETOH Use Counseling: #1, #2 AND #3 Completed. Metabolic Screening - Screen if on a Neuroleptic Medication - Metabolic screening should include: - Blood Pressure, BMI, Glucose or Hgb A1c, & a - Lipid profile from within the past 365 days. Metabolic Screening ([x]) Not Applicable, patient not on a neuroleptic. OR () Patient on a neuroleptic(s) . Enter below results for Glucose or Hemoglobin A1C, and lipid panel if obtained during the last 365 days. BMI: 34.400 Blood Pressure: 138/70 Laboratory Results (If applicable): Exam and Plan Mental Status Examination Ambulation Status: Ambulates independently with steady gait. Appearance: Well groomed, appropriate Attitude towards examiner: Cooperative Psychomotor activity: Within normal limits Behavior: Cooperative, appropriate. Quality of speech: Speech is well articulated, average in rate, loud in volume and tone. Affect: Congruent Mood: Euthymic Suicidal Ideation: Denies Patient states and also believes he will not kill himself. Homicidal Ideation: Denies Hallucinations: Denies Paranoid/Delusional Material: Denies Difficulties with thought organization: Patient is very talkative, and finds it difficult to answer questions concisely. He has a tendency to go off into tangents Insight: Fair. Judgment: Fair Orientation: Alert and oriented to person, place, time and situation. Cognition: Within normal limits Memory Function: Within normal limits Estimate of intellectual functioning: Above average Assets/Strengths Patient Identified Assets/Strengths: "I'm very compassionate, I'm always there to help. I'm energetic." Impression/Plan Impression and Plan: This is a 31-year-old single male with an undiagnosed history of Asperger's/high functioning autism spectrum disorder. He speaks in a loud tone of voice, stating "the indoor voices escaped me." He is very talkative, and has a difficult time answering simple questions concisely, often answering yes/no questions with detailed, rambling history. He denies suicidal ideation, although he was brought to the hospital by police for making such a statement. He had spoken of acquiring a firearm, but states that he has "mentally moved on " from wanting a gun, and from being suicidal. He has no significant history of substance abuse other than experimentation with LSD once, and weekly social use of alcohol and marijuana when he gets together with friends to play board games. Plan: At this time patient is declining any medication. We will continue to evaluate and discuss this case with the team. 1:1 sitter has been discontinued, as it does not appear to me that the patient is a danger to himself or others. Nursing reports that the patient has been acting appropriately on the unit. Patient has signed in voluntarily, and signed a three-day paper. We discussed the terms of these actions, patient understands that his earliest discharge will be on Friday afternoon. - Include all active medical diagnosis that require tx DSM 5 Diagnosis(es): Rule out autism spectrum disorder. Rule out mood disorder. Rule out major depression with suicidal statement. - Initial Tx Plan for Active Psych & Medical Conditions Treatment Plan: PLAN: The patient will be monitored on the unit for safety, suicidal ideation, mood stability and depression. Additional information is needed from collaterals, including his mother. Anticipate once clinically stable, that the patient will be discharged to home and family and be referred to IOP. - Factors that would help patient function - in a less restrictive setting. Factors: No longer having suicidal ideation.
--- NOTE | 2016-06-19 13:40 | SOCIAL WORKER PROG NOTE PSYCH ---
Social Work Progress Note Progress Note Chiki Spencer APRN and I met with Ant this afternoon. Ant presented with pressured speech, tangential. He denied having any SI/HI, no psychosis. He stated he realizes that he made a poor decision pror to coming into the hospital , regarding his drinking and driving. He denies regular drinking but did state he smokes Cannibis 1-2x weekly, as a way to calm himself down. He tried LSD 1x int he past 5-6yrs ago. He stated he may have been diagnosed with Asperger's when he was a child, and is aware that he has difficulty in social siturations, but has learned to compensate. 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 Ant agreed to have a family meeting with his Mother, Brianna James on . 06/20/16 at 4pm. Explained to his Miother that Mala Colvin LCSW and Chiki Spencer APRN will be at the meeting, with her son, Ant. She works at a teacher [employer], and was unable to give more information over the phone as she was at work. Ant stated he was on a medication in the past but cannot remember the name of it. He agreed to sign in voluntarily, but wanted to read the Voluntary form in detail before signing off in it.
--- NOTE | 2016-06-19 13:51 | NUR ---
PT EVALUATED BY MACHINE OPERATOR ASSISTANT AND WILL NOW BE MONITORED ON Q15 MIN STATUS
[2016-06-19 16:17] VITALS: BP 142/71
[2016-06-19 19:49] VITALS: BP 131/77
--- NOTE | 2016-06-19 22:18 | NUR ---
PT IS VISIBLE ON UNIT, WATCHING TV AND READING IN LOUNGE. MINIMAL INTERACTION WITH PEERS BUT IS VERY PLEASANT AND COOPERATIVE. ATTENDED WRAP UP MEETING. NO COMPLAINTS OR SI REPORTED TO THIS MHW. PT HAS A STABLE MOOD AND FULL RANGE AFFECT.
--- NOTE | 2016-06-20 05:23 | NUR ---
PATIENT SLEPT ALL NIGHT.
[2016-06-20 07:47] VITALS: BP 122/71
--- NOTE | 2016-06-20 08:25 | SOCIAL WORKER PROG NOTE PSYCH ---
Social Work Progress Note Progress Note Checked chart and a voluntary form was signed and then patient signed a termination of his voluntary at 1:15p 06/19, which would be up on 06/24. Voluntary form was faxed to the admitting office. I called and spoke with Jailyn, and asked her to confirm that she received it. She did. Spoke with Ant one on one prior to the planned family meeting this afternoon. Ant talked at length about what appears to be a conflict that he is currently experiencing in what he wants to do with his life. 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 He is extremely passionate about helping the world climate or society in working towards world peace. He became very tearful in talking about it. He denies that he was suicidal or that he would do anything to harm himself. He states that he has been unhappy with the way things have been going with his life and he talked about essentially feeling stuck and at a crossroads. He wants help and thought coming into the hospital was how he could get it. Asked if he ever had thoughts of hurting anyone else? He said no and that he clearly feels the opposite, wanting to support and help others before himself. Ant's Mom came in for a meeting at 4pm. She only had a half hour, due to having to return to work for her purse that she forgot. In my opinion she appeared a little anxious and pressured herself, but may have been because she was anxious to get her purse. Chiki Spencer APRN was also present for this meeting. She initially told me that she was surprised that her son was here, as she didn't see this coming. She said he went out for pizza and then ended up here and she's not sure why? She did not see any signs that he was suicidal or depressed. She did indicate that he can have a tendency to not know how to deal with stressors and then do something impulsive out of emotion, but when asked how often this happens she said "not often" and recalled this happening at age 7. Ant spent time in the meeting talking about how he didn't know what he wanted to do with his life and now he is finally feeling as if he has a plan. Talked about his passion to help the environment and society in some way. Mom sounded concerned for his current job and stated he needed to keep working. Ant has no intention of quitting his current job, due to financial obligations. Mom requested that each week when they spend time together he tell her one thing that went well that week and one thing that was negative and what he did to work on it. After Mom left Ant shared that he has a difficult time talking to his Mother. Not that he doesn't feel she is supportive, but he doesn 't seem to feel validated by her and feels that she is always anxious and in a mcdonough. Chiki Spencer APRN and I also spent some additional time talking to him about his actions in the ER and how he is not looking at himself and how he got here. He believes that he is, but insight into the whole situation is limited.
[2016-06-20 12:04] VITALS: BP 123/71
--- NOTE | 2016-06-20 13:26 | NUR ---
PT IS COMPLIANT AND COOPERATIVE. MOOD IS STABLE WITH A FULL RANGE OF AFFECT. PT DENIES SI AT THIS TIME, NO COMPLAINTS OFFERED. NO AGGRESSIVE BEHAVIOR NOTED. PT IS PRESENT IN THE COMMUNITY AND INTERACTING WELL WITH PEERS AND STAFF. PT IS ATTENDING GROUPS. VITALS ARE STABLE, APPETITE IS GOOD.
--- NOTE | 2016-06-20 13:59 | CP SOUTH PROGRESS NOTE PSYCH ---
Psych (Inpt) Progress Note Progress Note Progress Note: I discussed this patient's progress to date, current mental status, treatment process in the context of the treatment plan, and discharge planning with staff/ team in the daily morning inpatient team meeting. I also met with the patient myself in individual session. SUBJECTIVE: "I need to make changes in my life. I made a lot of poor decisions. I apologize for what I did in the ER." OBJECTIVE: Current Medications Sig/Adeel Start time Last Medication Dose Route Stop Time Status Admin Acetaminophen 650 MG Q6P PRN 06/18 1100 AC PO Al Hydroxide/Mg 30 ML Q4-6 PRN PRN 06/18 1100 AC Hydroxide PO Gabapentin 300 MG Q6P PRN 06/18 1100 AC PO Magnesium Hydroxide 30 ML AT BEDTIME PRN 06/18 1100 AC PO Olanzapine 5 MG Q6P PRN 06/18 1100 AC PO Trazodone HCl 50 MG AT BEDTIME NEED.. 06/18 1100 AC PO Vital Signs Date Time Temp Pulse Resp B/P Pulse O2 O2 Flow FiO2 Ox Delivery Rate 06/20 1204 79 123/71 06/20 0747 97.1 78 122/71 06/19 1949 97.0 77 131/77 06/19 1617 83 142/71 ASSESSMENT: Today we discussed the patient's presentation of being loud and tangential. We discussed his impulsive violent behavior in the emergency department and suicidal gestures. Patient states that at the time he believed that that behavior would further his goal of coming in for treatment. He also stated that he learned those behaviors by watching movies, and attempted to emulate those behaviors because, he states, he does not necessarily know how to react in life situations. Patient was at times tearful, stating that he does not know how to fit in to regular society. We discussed some of the advantages of taking psychiatric medications for impulse control, and tangetial thoughts. Patient continues to state that he does not agree to take any medications at this time. He does however agree to attend IOP/continuing treatment, as long as it does not interfere with his work schedule. Depression:0/10; Anxiety:0/10 (with 10 the worst.) Denies suicidal ideation, homicidal ideation, auditory hallucinations, visual hallucinations, paranoid ideation. Speech is well articulated, quick in rate, loud in volume and pressured in tone. Often goal directed, at times tangential. Reports sleeping "wonderful." The patient understands the risks/benefits/side effects of the medication and is agreeable to continue taking them. PLAN: Continue to suggest medications for impulse control and tangential thoughts. Continue with current management as patient is improving. Continue to provide support and encouragement.
[2016-06-20 15:38] VITALS: BP 131/89
--- NOTE | 2016-06-20 17:09 | SOCIAL WORKER TX PLAN PSYCH ---
Treatment Plan - Please Document: - Evidence that there is ongoing collaboration between - the patient and the interdisciplinary team, - including the patient's active participation and - responsibility for engaging in the treatment regimen, - and that the treatment plan is individualized and - relevant to the patient's conditions. - Treatment plan should reflect documentation indicating - that all active therapeutic efforts are included. Strengths/Capabilities: The patient has stable housing and employment. He does appear to have a supportive mother and friends. Physical Limitations (Interventions): None noted Patient Identified Trmt Goals: "I need to know what I should be doing with my life" Discharge Plan: Patient will go to outpatient therapy Problem/Goals #1 Problem #1: depression Goal (Short Term): Patient will be able to verbalize triggers to current thoughts and behaviors Goal (Hem Marker): patient will identify supports in the community that will help pursue life goals and support stabilization Interventions: patient will be offered medication management with the MULLING MACHINE OPERATOR, offered groups on symptom management, coping skills, relaxation, accupuncture, goals group, focus group, self esteem, art therapy. Product Manager Financial Services will explore ambivalence/ conflicts about life goals. Discuss consequences of impulses and importance of seeking appropriate supports. Product Manager Financial Services will hold family meeting and assist in setting up aftercare. Modalities: group/ individual DSM5/PS Stressors/Medical Prob Diagnosis' (DSM 5, Stressors, Medical): F31.9 Unspecified Bipolar Disorder and related Disorder F12.20 Cannabis use Disorder F10.20 Alcohol use Disorder Current GAF: 25 Treatment Team - Responsibilities of members of the treatment team include: - Medication Management- MD or MULLING MACHINE OPERATOR - Medication Administration and Monitoring- Nurse - Group Therapy- Occupational Therapist - 1:1 Therapy,Disch Planning,family involvement-Product Manager Financial Services
[2016-06-20 19:39] VITALS: BP 149/98
--- NOTE | 2016-06-20 21:40 | NUR ---
PT HAS ISOLATED IN ROOM FOR MOST OF SHIFT. PT CAME OUT OF A FAMILY MEETING AND STATED HE NEEDED TO DECOMPRESS FOR SOME TIME ON HIS OWN. OOB FOR VITALS, MEDS, AND DINNER. MINIMAL INTERACTION WITH PEERS. DID NOT ATTEND AA OR WRAP UP. PT COMPLAINT AND COOPERATIVE. NO COMPLAINTS OFFERED AT THIS TIME.
[2016-06-21 07:37] VITALS: BP 129/78
--- NOTE | 2016-06-21 09:46 | SOCIAL WORKER PROG NOTE PSYCH ---
Social Work Progress Note Progress Note Phoned [facility]#[phone], [phone] - provided basic referral information to [facility]. Tawanna will present information to the clinical director and see if Pt. will be accepted for therapy. There is a 2 week wait for an intake. Advised Tawanna to call Mala Colvin LCSW to inform on status. Alternative may be SA treatment, since Ant will have court regarding DUI.
[2016-06-21 12:10] VITALS: BP 145/80
--- NOTE | 2016-06-21 14:34 | SOCIAL WORKER PROG NOTE PSYCH ---
Social Work Progress Note Progress Note Received a message from Alie at [facility] that they were having some problems with verifying current insurance and that the therapist assigned to the case Gustavo Shepherd had attempted to give Ant 2 appts., but he refused them one on 06/24 and 06/28. Met with Ant to discuss the above information. He had been calling insurance to try and get all the correct insurance for them and he had everything written down. Not sure what the issue seemed to be as he has active [place]. I asked about the refusals for the above appts., he said he was given an appt. for 11am on Friday and he didn't know what time he will be out of here and 06/[address] his court date. He was hoping for an appt. for the week of 07/01. I told him that I would put a call into the therapist and see what else could be arranged. He is open to going and knows he can benefit from ongoing support. He believes that things have come to a turning point in his life and now he can move forward with a plan. He now feels that he knows what his goals need to be and the small steps to work on. I told him that was great and that our concern was about his continuing support because we wouldn't want to see him in another incident like the one in the ER. He apologized for the distress it caused and stated he realized it was the wrong way to go about it, but he felt desperate at the time. He continues to say he wouldn't kill himself or hurt anyone else. I told him that I wanted him to work on the appropriate way of dealing with such issues in the future and that's why it was important for him to get support. Discussed discharge for Friday, but stated his aftercare follow up had to be secured. Called [facility] again and left a message for Gustavo Shepherd about scheduling another time for Ant. I also faxed them his insurance information. As of 4pm I haven't heard back, so I tried to reach out to [facility] in [place], but needed to leave a voicemail.
--- NOTE | 2016-06-21 14:38 | NUR ---
PT IS COMPLIANT AND COOPERATIVE. MOOD IS STABLE WITH A FULL RANGE OF AFFECT. PT DENIES SI AT THIS TIME, NO COMPLAINTS OFFERED. PT IS PRESENT IN THE COMMUNITY AND INTERACTING WELL WITH PEERS AND STAFF. PT IS ATTENDING GROUPS. VITALS ARE STABLE, APPETITE IS GOOD.
[2016-06-21 16:13] VITALS: BP 135/70
--- NOTE | 2016-06-21 16:35 | CP SOUTH PROGRESS NOTE PSYCH ---
Psych (Inpt) Progress Note Progress Note Progress Note I discussed this patient's progress to date, current mental status, treatment process in the context of the treatment plan, and discharge planning with staff/ team in the daily morning inpatient team meeting. I also met with the patient myself in individual session. SUBJECTIVE: "I'm doing great." OBJECTIVE: Patient refusing medications at this time. Vital Signs Date Time Temp Pulse Resp B/P Pulse O2 O2 Flow FiO2 Ox Delivery Rate 06/21 1613 88 135/70 06/21 1210 89 145/80 06/21 0737 97.0 80 129/78 06/20 1939 96.2 98 149/98 ASSESSMENT: Patient reports doing "great." Offers no complaints. Patient refusing medications. States that he is using his time here to create some career goals, especially after speaking with the social worker psychiatric and with the family meeting yesterday. Depression:0/10; Anxiety:0/10 (with 10 the worst.) Denies suicidal ideation, homicidal ideation, auditory hallucinations, visual hallucinations, paranoid ideation. Patient states and also believes that he will not kill himself. He reports sleeping well at night. Appetite is good. Speech is well articulated, goal-directed, quick in rate, loud in volume and pressured in tone. Logical. Alert and oriented 3. The patient understands the risks/benefits/side effects of the medication and is agreeable to continue taking them. PLAN: Anticipate discharge on Friday, at the end of his three-day paper. Continue with current management as patient is improving. Continue to provide support and encouragement.
[2016-06-21 19:44] VITALS: BP 137/74
--- NOTE | 2016-06-21 21:35 | NUR ---
Pt is out in the community watching tv with his peers, mood is stable affect is full range, Compliant and cooperative with the staff. No behavioral issues noted during the shift. Pt vital signs are stable appetite is good. Will continue to monitor the pt.
[2016-06-22 07:57] VITALS: BP 134/81
[2016-06-22 12:01] VITALS: BP 112/65
--- NOTE | 2016-06-22 13:49 | NUR ---
PT IS COMPLIANT AND COOPERATIVE. PT IS OUT IN THE COMMUNITY INTERACTING WELL WITH STAFF AND PEERS. PT MOOD IS STABLE WITH A FULL RANGE AFFECT. PT IS ACTIVE IN GROUPS. PT DENIES SI. NO COMPLIANTS OFFERED
[2016-06-22 15:38] VITALS: BP 145/76
--- NOTE | 2016-06-22 16:51 | CP SOUTH PROGRESS NOTE PSYCH ---
Psych (Inpt) Progress Note Progress Note Include the following elements, when applicable: Involvement in the active treatment of the patient with behavioral observations of the patient and the patient's response to the treatment. Review of the ongoing treatment process in the context of the treatment plan. Indication of how multi-disciplinary staff members are carrying out the treatment plan. Plans for future interventions and recommendations for revision of the treatment plan. Liaison with other physicians/providers. Progress Note: Pt notes that he feels "great!" His sleep was described as "terrific." He denies SI or HI. 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 Current Medications Sig/Adeel Start time Last Medication Dose Route Stop Time Status Admin Acetaminophen 650 MG Q6P PRN 06/18 1100 AC PO Al Hydroxide/Mg 30 ML Q4-6 PRN PRN 06/18 1100 AC Hydroxide PO Gabapentin 300 MG Q6P PRN 06/18 1100 AC PO Magnesium Hydroxide 30 ML AT BEDTIME PRN 06/18 1100 AC PO Olanzapine 5 MG Q6P PRN 06/18 1100 AC PO Trazodone HCl 50 MG AT BEDTIME NEED.. 06/18 1100 AC PO Vital Signs Result Date Time B/P 145/76 06/22 1538 Pulse 86 06/22 1538 Temp 97.4 06/22 0757 Pulse Ox 97 06/18 1402 O2 Delivery Room Air 06/18 1402 Resp 18 06/18 1402 MSE Appears as stated age. Cooperative behavior, good, appropriate eye contact. Nl speech rate and prosody. No psychomotor retardation or agitation. Mood great!! Affect elevated, constricted, appropriate, liable. Linear and goal directed thought process though tangiental at times. Denies SI or HI. Does not appear to be responding to internal stimuli. Denies AVHs, paranoia, or delusions. I/J: limited A/P: Pt with unspecificed mood disorder and SI now denying all psych sx with elevated labile mood. - Pt declining all meds as does not feel he has a problem. - 3d paper in - Dispo per primary team
[2016-06-22 19:47] VITALS: BP 146/71
--- NOTE | 2016-06-22 22:16 | NUR ---
PATIENT HAS BEEN OUT IN [facility], WATCHING TV WITH PEERS; QUIET BUT PLEASANT; HE DENIES, S/I OR H/I AT THIS TIME; ATTENDED WRAP UP MEETING AND TALKED ABOUT HIS DISCHARGE PLANS.
[2016-06-23 07:55] VITALS: BP 144/81
[2016-06-23 12:16] VITALS: BP 133/76
--- NOTE | 2016-06-23 14:29 | CP SOUTH PROGRESS NOTE PSYCH ---
Psych (Inpt) Progress Note Progress Note Include the following elements, when applicable: Involvement in the active treatment of the patient with behavioral observations of the patient and the patient's response to the treatment. Review of the ongoing treatment process in the context of the treatment plan. Indication of how multi-disciplinary staff members are carrying out the treatment plan. Plans for future interventions and recommendations for revision of the treatment plan. Liaison with other physicians/providers. Progress Note: Pt notes that he feels "OK." He thinks he might be getting a cold. Did not want cough drops or any intervention. Looking forward to discharge back home. Denies SI or HI. Denies AVHs. Current Medications Sig/Adeel Start time Last Medication Dose Route Stop Time Status Admin Acetaminophen 650 MG Q6P PRN 06/18 1100 AC PO Al Hydroxide/Mg 30 ML Q4-6 PRN PRN 06/18 1100 AC Hydroxide PO Gabapentin 300 MG Q6P PRN 06/18 1100 AC PO Magnesium Hydroxide 30 ML AT BEDTIME PRN 06/18 1100 AC PO Olanzapine 5 MG Q6P PRN 06/18 1100 AC PO Trazodone HCl 50 MG AT BEDTIME NEED.. 06/18 1100 AC PO Vital Signs Result Date Time B/P 133/76 06/23 1216 Pulse 100 06/23 1216 Temp 97.9 06/23 0755 Resp 20 06/22 1947 Pulse Ox 97 06/18 1402 O2 Delivery Room Air 06/18 1402 MSE Appears as stated age. Cooperative behavior, good, appropriate eye contact. Nl speech rate and prosody. No psychomotor retardation or agitation. Mood "OK" Affect less elevated today, constricted, appropriate, liable. Linear and goal directed thought process. Denies SI or HI. Does not appear to be responding to internal stimuli. Denies AVHs, paranoia, or delusions. I/J: limited A/P: Pt with unspecificed mood disorder and SI now denying all psych sx with elevated labile mood recently. - Pt declining all meds as does not feel he has a problem. - 3d paper in - Dispo per primary team
--- NOTE | 2016-06-23 14:36 | NUR ---
Out in community interacts well with peers and when needed staff. Mood is stable, full range. Slightly grandiose in plans for his future. Denies thoughts of self harm.
[2016-06-23 15:55] VITALS: BP 138/78
[2016-06-23 19:40] VITALS: BP 136/68
--- NOTE | 2016-06-23 21:48 | NUR ---
PT. ATTENDED WRAP UP [employer]IR[employer] SOCIALIZING WITH OTHERS VITALS STABLE NO ISSUES.
--- NOTE | 2016-06-24 04:50 | NUR ---
AWAKE LATE TALKING TO HIS ROOM MATE IN THEIR ROOM.
[2016-06-24 07:48] VITALS: BP 130/90
--- NOTE | 2016-06-24 10:24 | SOCIAL WORKER PROG NOTE PSYCH ---
Social Work Progress Note Progress Note [facility] Called this morning to connect in order to secure an appt. Left a voicemail. Ant talked about being ready to leave today. Plans to contact his roommate to pick him up. He said he felt connected with a couple of the patients he met here and wanted to keep in touch with them. He said it's nice to have a group of people that you can relate with. I told him that he should look at groups that [facility] offers so that he can develop a support network in that way. He said he preferred individual therapy and feels that's where he would get the most benefit. I made another attempt to call [facility], but got Gustavo Shepherd's voicemail again. After some discussion with the team we concluded that we needed to discharge Ant as his 3 day termination of his voluntary admission at 1:15pm. I informed Ant that he would need to follow up with [facility]. I also gave him information for [facility] in [place] should things not work out.
[2016-06-24 12:31] VITALS: BP 130/73
--- NOTE | 2016-06-24 13:59 | NUR ---
will be discharged today to [facility]. Mood is stable, full range of affect. Denies thoughts of self harm when asked. Given education onsicide prevention, mood d/o, and cannabis abuse.
--- NOTE | 2016-06-24 14:09 | CP SOUTH PROGRESS NOTE PSYCH ---
Psych (Inpt) Progress Note Progress Note Progress Note: I discussed this patient's progress to date, current mental status, treatment process in the context of the treatment plan, and discharge planning with staff/ team in the daily morning inpatient team meeting. I also met with the patient myself in individual session. SUBJECTIVE: "I've got my head on straight. I now have a purpose. It's tough when you don't know were you are going. I also know that I have to reach out to my mother. I am more hopeful." OBJECTIVE: Patient has refused all medications. Vital Signs Date Time Temp Pulse Resp B/P Pulse O2 O2 Flow FiO2 Ox Delivery Rate 06/24 1231 85 130/73 06/24 0748 97.8 98 130/90 06/23 1940 98.6 98 136/68 06/23 1555 108 138/78 ASSESSMENT: Patient reports that he is doing well. States that he feels safe and ready for discharge. Denies suicidal ideation. States that he feels that his stay here has been beneficial. We discussed specifically whether the patient was harboring any suicidal or homicidal thoughts, which he adamantly denies. He states that he is not planning or contemplating any future violent action. He also states that he does not have violent fantasies. Today in our team meeting, there was a unanimous decision that the patient is ready for discharge, and no grounds on which to keep him any longer on the unit, now that he is at the end of his three-day paper. Depression:0/10; Anxiety:0/10 (with 10 the worst.) Denies suicidal ideation, homicidal ideation, auditory hallucinations, visual hallucinations, paranoid ideation. Patient states and also believes that he will not kill himself. He reports sleeping well at night, his appetite is good. Speech is well articulated, usually goal-directed but at times tangential, average in rate, loud in volume and mildly pressured in tone. The patient understands the risks/benefits/side effects of the medication and is agreeable to continue taking them. PLAN: Discharge home today. He is unable to attend [facility] due to his work schedule. He will follow-up for treatment with an outpatient therapist. Continue with current management as patient is improving. Continue to provide support and encouragement.
--- NOTE | 2016-06-24 14:10 | DISCHARGE SUMMARY REPORT-PSYCH ---
Visit Information Visit Dates/Diagnosis' Admission Date: 06/18/16 Discharge Date: 06/24/16 Reason for Admission: The patient is a 31 year old single, male presenting to the ED, on a PEER, after making suicidal statements to the police. Psy Discharge Primary Diag: Unspecified Mood Disorder. Psy Discharge Secondary Diag: N/A Hospital Course Significant Lab Findings: Lab TSH &T3 &Free T4 Intrp 0.908 uIU/mL 06/16/16 1233 Serum Alcohol < 10.0 MG/DL 06/16/16 1233 Urine Cannabis Screen > 80.00 NG/ML H 06/16/16 1730 Course Complications: None Consultations: The patient was seen for admission history and physical by Dr. Diaz. Please refer to his note for additional information. Allergies: Coded Allergies: No Known Allergies (06/16/16) Hospital Course/TX Response: The patient was monitored on the unit for safety, suicidal ideation, depression and mood stability. He participated in multimodal treatments on the unit. The patient refused to take any medication while here. A family meeting was held with his mother, who stated that she felt that the behavior which brought him to the hospital on a PEER was unusual for him, not his usual behavior. She stated that she felt that he was of no danger to himself or others, and advocated for him to leave the hospital as soon as possible. Today, the day of discharge, he reports that he is doing well. States that he feels safe and ready for discharge. Denies suicidal ideation. States that he feels that his stay here has been beneficial. We discussed specifically whether the patient was harboring any suicidal or homicidal thoughts, which he adamantly denies. He states that he is not planning or contemplating any future violent action. He also states that he does not have violent fantasies. Today in our team meeting, there was a unanimous decision that the patient is ready for discharge, and no grounds on which to keep him any longer on the unit, now that he is at the end of his three-day paper. Depression:0/10; Anxiety:0/10 (with 10 the worst.) Denies suicidal ideation, homicidal ideation, auditory hallucinations, visual hallucinations, paranoid ideation. Patient states and also believes that he will not kill himself. He reports sleeping well at night, his appetite is good. Speech is well articulated, usually goal-directed but at times tangential, average in rate, loud in volume and mildly pressured in tone. Patient states he feels safe and ready for discharge. Discharge HBIPS - Tobacco Use Treatment Offered Post DC Medications Offered: NA-No Tob Use >30 days Post DC Tobacco Treatment Plan: NA-No Tobacco use >30days - EtOH/Drug Use D/O Treatment Offered Post DC Medications Offered: Ref Med EtOH/Drug Use D/O Post DC EtOH/SubAbuse [place] Plan: Other SubAbuse/Dual Pgm ([facility]) Metabolic Screening - Screen if on a Neuroleptic Medication - Metabolic screening should include: - Blood Pressure, BMI, Glucose or Hgb A1c, & a - Lipid profile from within the past 365 days. Metabolic Screening ([x]) Not Applicable, patient not on a neuroleptic. OR () Patient on a neuroleptic(s) . Enter below results for Glucose or Hemoglobin A1C, and lipid panel if obtained during the last 365 days. BMI: 34.400 Blood Pressure: 130/73 Laboratory Results (If applicable): Discharge Instructions General Discharge Information Discharge Medications: Discharge Medications- (Dose, route, freq, indication): Patient refuses to take medications. Multiple Neuroleptics: ([x]) Not Applicable OR Document below three failed attempts at monotherapy, or a plan to taper to monotherapy, or augmentation of Clozapine. () Patient's Diet: Regular Patient's Activity: No restrictions DC Disposition: Patient returning to his home, where he lives with 2 roommates. Recommendations: Follow-up with outpatient therapy. Referred To: [facility] Attn: Gustavo Shepherd [address] [place] [address]. [phone]. Copies To: *
--- NOTE | 2016-07-03 16:09 | SOCIAL WORKER PROG NOTE PSYCH ---
Social Work Progress Note Progress Note After Ant left the hospital. I reached out to him to see if he had an appt. at [facility] yet. Ant stated he had not received an appt. and had left them a voicemail. After another day passed and he had not heard back from [facility], I offered to set him up in our outpatient program and I provided him with the phone number. I called [facility] and told them that he needs an appt. for intake as he was just discharged from the hospital. The following day he did not call [facility], so they attempted to reach out to him several times and offer him an appt. He did not return the call.
== END 2016-06-24 14:55 | DRG 885 ==
LOC: ERH 23:25 → ERHI 06-18 10:49 → CP SOUTH 06-18 10:49
PROVIDERS: Pediatrics; ADMIT Psychiatry & Neurology Psychiatry
DX: F39 Unspecified mood [affective] disorder (principal)
CPT/HCPCS: 80307; G0463; G0479; G0480; J1200; J1630